=== PATIENT | female | born 1945 | race American Indian/Alaskan Native ===

== ENCOUNTER 2016-09-23 06:16 | Day surgery (SDC) | payer MEDICARE ==
[2015-01-19 09:23] VITALS: BMI 30.9
[2016-09-23] MEDS ORDERED: Lidocaine 2% Inj (20ml) ONE (06:30)
[2016-09-23] MEDS ORDERED: Iodixanol 320 MG/ML 100 ML BOTTLE IV ONE ×2 (06:31→08:27)
[2016-09-23] MEDS ORDERED: Iodixanol 320 MG/ML 200 ML BOTTLE IV ONE (06:31)
[2016-09-23] MEDS ORDERED: Nitroglycerin 50mg in D5W 250 ML IV ONE (06:31)
[2016-09-23] MEDS ORDERED: Phenylephrine 10 mg/ml Inj ONE (06:31)
[2016-09-23] MEDS ORDERED: Iohexol 350mgl/ml 50 ML ONE (06:31)
[2016-09-23 06:43] LABS: ADD MANUAL DIFF? NO
[2016-09-23 06:56] VITALS: O2SAT 92
[2016-09-23 07:00] LABS: INR 1.04 (0.93-1.08); PARTIAL THROMBOPLASTIN TIME 26.2 Seconds (23.7-30.8)
[2016-09-23 07:08] LABS: BASO # 0.02 K/mm3 (0.0-2.0); BASO % 0.5 % (0.0-3.0); EOS # 0.1 (0.0-0.7); EOS % 2.9 % (1.5-5.0); GRAN % 40.5 % (50.0-68.0); HEMATOCRIT 35.2 % (36.0-48.0); LYMPH % 48.2 % (22.0-35.0); MEAN CELL VOLUME 96.4 fL (80.0-105.0); MEAN CORPUSCULAR HEMOGLOBIN 33.7 pg (25.0-35.0); MEAN CORPUSCULAR HGB CONC 34.9 g/dl (31.0-37.0); MEAN PLATELET VOLUME 10.4 fl (7.0-11.0); MONO # 0.3 (0.1-0.6); MONO % 7.9 % (1.0-6.0); PLATELET COUNT 194 10^3/uL (120.0-450.0); RED CELL DISTRIBUTION WIDTH 14.2 % (11.5-14.5); WHITE BLOOD COUNT 4.2 10^3/ul (4.5-11.0)
[2016-09-23 07:13] LABS: BLOOD UREA NITROGEN 14 mg/dL (7-21); CALCIUM 8.8 mg/dL (8.4-10.5); CARBON DIOXIDE 24 mmol/L (21-33); CHLORIDE 108 mmol/L (98-107); GFR AFRICAN-AMERICAN > 60; GLUCOSE,RANDOM 97 mg/dL (70-110); SODIUM 140 mmol/L (132-148)
[2016-09-23] MEDS ORDERED: Midazolam 2 MG/2 ML VIAL ONE ×2 (07:18→08:03)
[2016-09-23] MEDS ORDERED: Sodium Chloride 0.9% 1,000 ML IV SCH (09:15)
[2016-09-23 09:57] LABS: TROPONIN I < 0.01 ng/mL
--- NOTE | 2016-09-23 10:53 | CARDCATH ---
PROCEDURE DATE: 09/23/2016 HISTORY: The patient is a 71-year-old woman who presents with angina and a positive stress test. The patient's cardiac risk factors include hypertension, hypercholesterolemia, as well as COPD, and s he is an active smoker. In addition, the patient has undergone PTCA and stent in the past. PROCEDURE: Left heart catheterization with coronary angiography and left ventriculogram. The right femoral artery was cannulated with a 6-Colombian sheath. There were no complications. The findings on catheterization revealed a left ventricle revealed mild LV hypokinesis with an estima kaleigh ejection fraction of 45-50%. Her coronary anatomy revealed a left main artery that was unremarkable. The LAD revealed patent stents with no critical lesions. The circumflex artery in the AV groove branch revealed multiple 70-80% lesions. The obtuse marginal branch revealed a patent stent. The RCA was selectively cannulized and found to be a dominant vessel. The RCA revealed a patent sten t in the mid-portion, however, there was an 80% stenosis in the proximal RCA, followed by an eccentri c in-stent restenosis of 70-80% in the [id number] portion of the RCA. The patient was started on intravenous Angiomax. Under fluoroscopic guide, the guiding catheter was placed in the ostium of the RCA. An 0.014 ATW wir e used to cross the critical lesions. The 3.0 balloon was utilized to predilate the lesion. A 3.5 mm x 38 mm drug-eluting stent was placed and deployed at 14 atmospheres of pressure. Repeat co ronary angiography revealed an excellent result, with no residual stenosis and FUENTES 3 flow. Angio-Seal was used to close the femoral artery site. The patient tolerated the procedure well. In summary, the procedure was successful for PTCA and stent of a long lesion in the RCA with a drug-e luting stent. Cardiac catheterization reveals 2-vessel CAD of the RCA, as well as the AV groove branch of the circu mflex artery. Patent stents were noted in the LAD and circumflex artery, and in-stent restenosis of the RCA, as wel l as a de mi lesion of the proximal RCA. LV function was preserved, with an estimated ejection fraction of approximately 50%. Given these findings, the patient will need to undergo a strict cardiac risk reduction program. I vasquez ve discussed with her about the need to stop smoking. We will evaluate her as an outpatient to see w krysten the circumflex artery needs to be manipulated, given her symptoms. Shaquille Shetty MD cc: [id number] TT: 09/23/2016 10:52:50 kyle
--- NOTE | 2016-09-23 12:49 | DS ---
She is status post cardiac cath this morning with Dr. Shetty. He put a stent in. She will be resting flat for the next 6 hours. She will be discharged later tonight at 6 p.m. She will be on Ecotrin, L ipitor, Lopressor, Plavix. She will be followed up on Monday here in [facility] for card iac catheterization #2. She did well. Hopefully, she will be doing well over the weekend and we erin l see her Monday. She is here for coronary artery disease, hypertension, high cholesterol and she is a smoker. She is told never to smoke again. Nawaf Escalante DO cc: [id number] TT: 09/23/2016 12:48:28 en
--- NOTE | 2016-09-23 14:03 | CARD ---
APPROVED REPORT EKG Measurement Heart [id number] PA 174P62 [id number] <Conclusion> Sinus bradycardia Left axis deviation Inferior infarct, age undetermined Abnormal ECG
--- NOTE | 2016-09-23 14:10 | HP ---
I was called by Dr. Shetty this morning to come do a history and physical on this patient who is status post cardiac catheterization with stent placement. I see her in her room on the telemetry floor. S he is resting comfortably in bed. She understands she has to lay flat for 6 hours after the procedur e. She has no chest pain or shortness of breath. Maybe a little bit hungry, but no acute issues at this time. PAST MEDICAL HISTORY: She has a history of complaints of shortness of breath lately. It is a little bit better this morning after the catheterization. Also has CAD, hyperlipidemia, hypertension, arth ritis, history of cancer. FAMILY HISTORY: History of cancer, breast cancer in 05/2013. Mom had lung cancer. PAST SURGICAL HISTORY: She had cardiac catheterization x 3 with 3 stents, ingrown toenail surgery, l eft breast surgery. SOCIAL HISTORY: She still smokes half a pack of cigarettes a day; she quit 2 days ago. She drinks s parkling wine. No drug abuse. FAMILY HISTORY: There is CAD in the family with the father with a heart attack. REVIEW OF SYSTEMS: She has edema of the right ankle from time to time. She wears reading glasses. She is alert and oriented x 3. She understands what is going on. Arthritis. At this time, resting in bed. She has no acute vision changes or hearing changes. No sore throat. No chest pain or short ness of breath at this time. Resting comfortably in bed. She does have a history of shortness of br eath before this. No abdominal pain, nausea, vomiting, constipation. Her legs, a little edema on th e right side every now and then. Skin is intact. She is comfortable. No headaches, no dizziness. PHYSICAL EXAMINATION: VITAL SIGNS: 97.7 temp, 60 pulse, 162/85 blood pressure, and 92% O2 sat on room air. HEENT: Head is atraumatic, normocephalic. Extraocular muscles are intact. Throat is moist, no eryt mario. NECK: Supple, no JVD. HEART: Regular rate. LUNGS: Have decreased breath sounds, but clear to auscultation. ABDOMEN: Soft, obese, nontender. Positive bowel sounds. EXTREMITIES: No edema at this time. SKIN: For the most part is intact. LYMPHATICS: No palpable lymphadenopathy appreciated. LABORATORY DATA: She has a 140 sodium, potassium 4, BUN 14, creatinine 0.7, GFR is greater than 60, sugar is 97, calcium is 8.8. INR is 1.04. White count 4.2, hemoglobin 12.3, hematocrit 35.2, platel ets of 194. She had a cardiac catheterization this morning; she did well. I discussed it with Dr. Shetty and [facility]. She will be discharged later today at 6:00 p.m. She is here for coronary artery disease, hypertension, high cholesterol, and she is a smoker. She wa s told by me and Dr. Shetty not to smoke, and by her primary care doctor not to smoke. I believe Dr. Vanesa gardner will be bringing her back on Monday for another cardiac catheterization and stent placement. Nawaf Escalante DO cc: [id number] TT: 09/23/2016 10:20:08 ar 09/23/2016 13:09:30
[2016-09-23 16:54] VITALS: BP 152/90; RESP 16; TEMP 98.2
[2016-09-23 17:29] LABS: TROPONIN I 0.03 ng/mL
[2016-09-23 20:05] VITALS: PULSE 66
== END 2016-09-23 20:31 | disposition home or self-care (01) ==
LOC: CATH 06:16 → 2RSO 09:09 → CATH 20:31
PROVIDERS: ATTEND Internal Medicine Cardiovascular Disease
DX: I25.119 Atherosclerotic heart disease of native coronary artery with unspecified angina pectoris (principal); I10 Essential (primary) hypertension; E78.00 Pure hypercholesterolemia, unspecified; J44.9 Chronic obstructive pulmonary disease, unspecified; F17.210 Nicotine dependence, cigarettes, uncomplicated; E78.5 Hyperlipidemia, unspecified; Z82.49 Family history of ischemic heart disease and other diseases of the circulatory system; Z95.5 Presence of coronary angioplasty implant and graft; Z80.3 Family history of malignant neoplasm of breast; Z80.1 Family history of malignant neoplasm of trachea, bronchus and lung
CPT/HCPCS: 36415; 80048; 82550; 83615; 84484; 85025; 85610; 85730; 86850; 86900; 93005; 93458; 99152; 99153; C1725; C1760; C1769; C1874; C1887; C2629; C9600; J0583; J1644; J2250; J2370; J3010; J7040 ×2; Q9967 ×2

== ENCOUNTER 2016-09-26 06:40 | Day surgery (SDC) | payer MEDICARE ==
[2015-01-19 09:23] VITALS: BMI 30.9
[2016-09-26] MEDS ORDERED: Lidocaine 2% Inj (20ml) ONE (06:58)
[2016-09-26] MEDS ORDERED: Iohexol 350mgl/ml 50 ML ONE (06:59)
[2016-09-26 07:17] LABS: ADD MANUAL DIFF? NO
[2016-09-26 07:24] LABS: BASO # 0.02 K/mm3 (0.0-2.0); BASO % 0.5 % (0.0-3.0); EOS # 0.1 (0.0-0.7); EOS % 2.6 % (1.5-5.0); GRAN % 43.3 % (50.0-68.0); HEMATOCRIT 35.5 % (36.0-48.0); LYMPH # 1.8 (1.2-3.4); LYMPH % 45.7 % (22.0-35.0); MEAN CELL VOLUME 96.5 fL (80.0-105.0); MEAN CORPUSCULAR HEMOGLOBIN 33.2 pg (25.0-35.0); MEAN CORPUSCULAR HGB CONC 34.4 g/dl (31.0-37.0); MEAN PLATELET VOLUME 10.4 fl (7.0-11.0); MONO # 0.3 (0.1-0.6); MONO % 7.9 % (1.0-6.0); PLATELET COUNT 187 10^3/uL (120.0-450.0); RED CELL DISTRIBUTION WIDTH 14.1 % (11.5-14.5); WHITE BLOOD COUNT 3.9 10^3/ul (4.5-11.0)
[2016-09-26 07:36] LABS: INR 1.06 (0.93-1.08); PARTIAL THROMBOPLASTIN TIME 26.8 Seconds (23.7-30.8)
[2016-09-26 07:45] LABS: BLOOD UREA NITROGEN 14 mg/dL (7-21); CALCIUM 9.1 mg/dL (8.4-10.5); CARBON DIOXIDE 26 mmol/L (21-33); CHLORIDE 106 mmol/L (98-107); GFR AFRICAN-AMERICAN > 60; GLUCOSE,RANDOM 107 mg/dL (70-110); POTASSIUM 3.9 mmol/L (3.6-5.0); SODIUM 142 mmol/L (132-148)
[2016-09-26] MEDS ORDERED: Midazolam 2 MG/2 ML VIAL ONE ×2 (09:14→09:43)
[2016-09-26] MEDS ORDERED: Iodixanol 320 MG/ML 200 ML BOTTLE IV ONE (09:14)
[2016-09-26] MEDS ORDERED: Eptifibatide 20 mg/10mL Inj IVP ONE (10:10)
[2016-09-26] MEDS ORDERED: Sodium Chloride 0.9% 1,000 ML IV SCH (10:15)
--- NOTE | 2016-09-26 10:35 | CARDCATH ---
PROCEDURE DATE: 09/26/2016 CARDIAC CATHETERIZATION AND PERCUTANEOUS TRANSLUMINAL CORONARY ANGIOPLASTY HISTORY: The patient is a 71-year-old woman with multiple cardiac risk factors who presents with uns table angina and a positive stress test. The patient underwent successful PTCA and stent of a critically-stenosed RCA last week and was wil t back for PTCA and stent of the circumflex artery. The left femoral artery was cannulated with a 6-Czech sheath. There were no complications. Findings on catheterization revealed right dominant circulation. The stent in the RCA was found to be patent and provided good antegrade flow. Left main artery revealed a 30-40% distal lesion. The circumflex artery revealed a 70% ostial stenosis followed by a 70-80% stenosis in the proximal po rtion. The patient was started on intravenous Angiomax. Under fluoroscopic guide, the guiding catheter was placed in the ostium of the left main artery. An 0.014 ATW wire was used to cross the critical lesion. A 2.5 x 18 mm drug-eluting stent was placed and deployed in the circumflex artery at 10 atmospheres o f pressure. Repeat coronary angiography revealed an excellent result with no residual stenosis and T IMI 3 flow. The PRU was measured to be subtherapeutic on Plavix. Angio-Seal was used to close the femoral artery site. The patient tolerated the procedure well. SUMMARY: The procedure was successful for PTCA and stent of a 2 critically-stenosed lesions in the c ircumflex artery with a drug-eluting stent. Coronary angiography revealed a patent stent in the RCA. Given these findings, the patient will need to remain on aspirin indefinitely and Effient for at leas t 1 year. We will start the patient on Effient while she is in the hospital. Shaquille Shetty MD cc: [phone] TT: 09/26/2016 10:34:29 kyle
--- NOTE | 2016-09-26 11:56 | HP ---
I got a call this morning from Dr. 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 She is comfortable, resting on the gurney. She is in good spirits. She understands what is going on. No chest pain or shortness of breath, no abdominal pains. She here for cardiac cath and stent placement for the second time in 4-5 days. Hopefully, she will do very well. PAST MEDICAL HISTORY: Shortness of breath that has improved. She has had catheterizations before, CAD, high cholesterol, hypertension, arthritis, history of breast cancer. FAMILY HISTORY: Family has history of cancer, breast. Mom had lung cancer. PAST SURGICAL HISTORY: Cardiac stents x 3+ today, toenail surgery, left breast surgery. SOCIAL HISTORY: She still smokes cigarettes. She is told to quit. Apparently , she quit 5 days ago now. She drinks sparkling wine. No drugs. FAMILY HISTORY: There is coronary artery disease in the family with the father with a heart attack. REVIEW OF SYSTEMS: Presently, she is doing better than she did 4-5 days ago, less edema. She does wear reading glasses. She is alert and oriented x 3. She understands the situation. She is getting another catheterization. She has arthritis. No acute vision changes or hearing changes. No sore throat. No chest pain, shortness breath, or abdominal pain. No shortness of breath, no nausea, vomiting, constipation, or diarrhea. Legs have improved with the edema. Skin is intact. She is fairly comfortable. No headaches or dizziness. PHYSICAL EXAMINATION: VITAL SIGNS: We have 98.3 temp, 59 pulse, 142/74 blood pressure, 18 respiratory rate, 99% O2 sat on 2 liters nasal cannula. HEENT: Head is atraumatic, normocephalic. Extraocular muscles are intact. Throat is moist, no erythema. NECK: Supple. No JVD. HEART: Regular rate. LUNGS: Decreased breath sounds, but clear bilaterally. No wheezes, rhonchi, or rales. ABDOMEN: Soft, nontender, obese. Positive bowel sounds. No guarding, no rebound, no CVA tenderness. EXTREMITIES: No edema at this time. SKIN: For the most part is intact. NEUROLOGIC: No palpable lymphadenopathy appreciated. LABORATORY DATA: She had blood tests. She has a 142 sodium, potassium 3.9. BUN is 14, creatinine 0.8. GFR is greater than 60. Sugar is 107. Calcium is 9.1. INR is 1.06. She has a 3.9 white count, 12.2 hemoglobin, 35.5 hematocrit with platelets. She had cardiac cath with stent by Dr. Shetty. She is resting comfortably in bed. I will check her labs tomorrow. I am hoping after she stays overnight, she will be discharged. She was put back on her aspirin, Effient, Lipitor, Lopressor. She is on IV fluids, we will check her labs tomorrow. The patient is here for CAD and stent placement. Nawaf Escaalnte DO cc: [id number] TT: 09/26/2016 11:56:33 jn MTDD
--- NOTE | 2016-09-26 18:55 | CARD ---
APPROVED REPORT EKG Measurement Heart [id number] DC 164P33 [id number] <Conclusion> Marked sinus bradycardia Left axis deviation Inferior infarct, age undetermined Abnormal ECG
[2016-09-27 06:07] VITALS: O2SAT 96
[2016-09-27 07:47] LABS: ADD MANUAL DIFF? NO
[2016-09-27 07:56] LABS: BASO # 0.01 K/mm3 (0.0-2.0); BASO % 0.2 % (0.0-3.0); EOS # 0.1 (0.0-0.7); EOS % 1.9 % (1.5-5.0); GRAN # 2.53 (1.4-6.5); GRAN % 58.8 % (50.0-68.0); HEMATOCRIT 34.7 % (36.0-48.0); LYMPH # 1.3 (1.2-3.4); LYMPH % 30.7 % (22.0-35.0); MEAN CELL VOLUME 95.6 fL (80.0-105.0); MEAN CORPUSCULAR HEMOGLOBIN 33.1 pg (25.0-35.0); MEAN CORPUSCULAR HGB CONC 34.6 g/dl (31.0-37.0); MEAN PLATELET VOLUME 10.1 fl (7.0-11.0); MONO # 0.4 (0.1-0.6); MONO % 8.4 % (1.0-6.0); PLATELET COUNT 171 10^3/uL (120.0-450.0); RED CELL DISTRIBUTION WIDTH 13.8 % (11.5-14.5); WHITE BLOOD COUNT 4.3 10^3/ul (4.5-11.0)
[2016-09-27 08:07] LABS: ALKALINE PHOSPHATASE 53 U/L (38-133); ALT/SGPT 27 U/L (7-56); AST/SGOT 25 U/L (15-39); BILIRUBIN,TOTAL 0.9 mg/dL (0.2-1.3); BLOOD UREA NITROGEN 12 mg/dL (7-21); CALCIUM 8.7 mg/dL (8.4-10.5); CARBON DIOXIDE 28 mmol/L (21-33); CHLORIDE 104 mmol/L (98-107); GFR AFRICAN-AMERICAN > 60; GLUCOSE,RANDOM 93 mg/dL (70-110); POTASSIUM 3.8 mmol/L (3.6-5.0); SODIUM 138 mmol/L (132-148); TOTAL PROTEIN 6.9 g/dL (5.8-8.3)
[2016-09-27 12:47] VITALS: BP 142/67; PULSE 52; RESP 20; TEMP 98
--- NOTE | 2016-09-27 13:26 | PN ---
DATE: 09/27/2016 The patient is without symptoms. PHYSICAL EXAMINATION: VITAL SIGNS: Blood pressure is 142/67, heart rate is in the 50s. NECK: Negative JVD. LUNGS: Without rales. HEART: Reveals S1, S2. EXTREMITIES: Without edema. LABORATORIES: Includes a hemoglobin of 12. Chemistries are unremarkable. IMPRESSION: 1. Stable post percutaneous transluminal coronary angioplasty and stent of the circumflex artery. 2. History of multivessel coronary artery disease. 3. Plavix resistance. 4. Hypertension. 5. Hypercholesterolemia. PLAN: Given these findings, the patient is stable for discharge. The patient has been switched to E ffient given her Plavix resistance. Followup and instructions were given to the patient. She will follow up with Dr. 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 Shaquille Shetty MD cc: [facility] TT: 09/27/2016 13:25:27 Confirmation # [id number] Dictation # [id number] cathleen
--- NOTE | 2016-09-27 16:47 | DS ---
I saw her resting in bed. She wants to go home. She is very comfortable. No chest pain or shortness of breath, no abdominal pain. She is status post cardiac catheterization with stent placement by Dr. Shetty yesterday and that is the second time he did it in a week. PHYSICAL EXAMINATION: VITAL SIGNS: 98.6 temp, 72 pulse, 147/79 blood pressure, 19 respiratory rate, 96% O2 sat on room air. HEENT: Head is atraumatic, normocephalic. Throat is moist. NECK: Supple. HEART: Regular rate. LUNGS: Clear to auscultation. ABDOMEN: Soft, obese, nontender. EXTREMITIES: No edema. LABORATORY DATA: She has a 4.3 white count, 12 hemoglobin, 34.7 hematocrit with platelets. INR is 1.06, sodium 138, potassium 3.8, BUN 12, creatinine 0.8 , GFR is greater than 60. Sugar is 93, calcium is 8.7, AST is 25, ALT is 27, alkaline phosphatase 63, total protein 6.9. MEDICATIONS: She is currently on Ecotrin, Effient and Lipitor. She will also continue her Zestril, Imdur, and metoprolol. I am not sure about the Plavix; it might be stopped as per Dr. Shetty. When Dr. Shetty comes in, we will ask him that question. We will continue with aggressive treatment and care. She should be discharged today to follow up with her doctor in the outpatient. Medication reconciliation will be done by Dr. Shetty. I will discuss this with the nurse. Nawaf Escalante DO cc: [id number] TT: 09/27/2016 16:46:24 dn MTDD
--- NOTE | 2016-09-27 18:25 | CARD ---
APPROVED REPORT EKG Measurement Heart [id number] [place] 160P43 [id number] <Conclusion> Sinus bradycardia Left axis deviation Inferior infarct, age undetermined Abnormal ECG
== END 2016-09-27 14:35 | disposition home or self-care (01) ==
LOC: CATH 06:40 → 2RSO 10:30 → CATH 09-27 14:35
PROVIDERS: ATTEND Family Medicine
DX: I25.10 Atherosclerotic heart disease of native coronary artery without angina pectoris (principal); I10 Essential (primary) hypertension; E78.00 Pure hypercholesterolemia, unspecified; F17.210 Nicotine dependence, cigarettes, uncomplicated; Z95.5 Presence of coronary angioplasty implant and graft; Z85.3 Personal history of malignant neoplasm of breast; Z82.49 Family history of ischemic heart disease and other diseases of the circulatory system; Z80.1 Family history of malignant neoplasm of trachea, bronchus and lung; Z79.82 Long term (current) use of aspirin
CPT/HCPCS: 36415 ×2; 80048; 80053; 85025 ×2; 85027; 85576; 85610; 85730; 86850; 86900; 93005 ×2; 99152; C1760; C1769; C1874; C1887 ×2; C2629; C9600; J0583; J1327; J1644; J2250; J3010; J7040; Q9967 ×2